=== PATIENT | male | born 2000 | race Caucasian/White ===

== ENCOUNTER 2023-05-14 06:21 | Emergency (ER) | payer OTHER, SELFPAY ==
[2023-05-14 06:29] VITALS: BP 144/94; PULSE 116; RESP 16; TEMP 36.6; O2SAT 98; BMI 23.9
--- NOTE | 2023-05-14 06:49 | ED.GENADULT ---
HPI - General Adult General Chief complaint: Allergic Reaction Stated complaint: allergic reaction Time Seen by Provider: 05/14/23 06:29 History of Present Illness HPI narrative: Patient c/o sudden onset throat swelling that began at 0530 today. No known allergen exposure. Patient states she has h/o anaphylaxis and is concerned she is having a reaction. Patient took 25mg benadryl prior to arrival. Patient denies SOB. Lungs clear to auscultation. Patient notes her epi-pen is 5 years old and did not take it. Was in on 05/10/23 for viral infection and given zofran odt rx. Prefers They/Them pronouns. 23-year-old male to female transgender young woman presenting to the emergency department with concern of potential allergic reaction. They report a history anaphylaxis. Was at a [employer] where there were some dog so after returning from that at about 130 in the morning took a dose of diphenhydramine. Went to bed, unclear of slept but reports waking feeling throat increasingly tight. Took another dose of diphenhydramine, waited 30 minutes and was not feeling better so presented to the emergency department. Allergic reaction is often associated with asthma like wheeze. Looks to have an underlying history of eczema as well. No other rashes noted. No nausea. Has been having abdominal cramping but this has been present in some form I believe since appendectomy. Related Data Home Medications Medication Instructions Recorded Confirmed albuterol sulfate 90 mcg/actuation 2 puff inhalation Q4H PRN 04/20/22 05/14/23 aerosol inhaler (Ventolin HFA) dextroamphetamine-amphetamine ER 25 mg PO DAILY 04/20/22 05/14/23 25 mg 24hr capsule,extend release (Adderall XR) venlafaxine 37.5 mg 37.5 mg PO DAILY 04/20/22 05/14/23 capsule,extended release 24 hr estradiol valerate 10 mg/mL 5 mg IM QWEEK 05/10/23 05/14/23 intramuscular oil Previous Rx's Medication Instructions Recorded ondansetron 4 mg disintegrating 4 mg PO Q6H PRN nausea and 05/10/23 tablet vomiting #14 tabs Allergies Allergy/AdvReac Type Severity Reaction Status Date / Time peanut Allergy Severe Anaphylaxis Verified 05/10/23 13:15 tree nut Allergy Severe Anaphylaxis Verified 05/14/23 06:29 cat dander Allergy Mild asthma Verified 05/14/23 06:29 exacerbation dog dander Allergy Mild asthma Verified 05/14/23 06:29 exacerbation Penicillins Allergy Mild Verified 05/10/23 13:15 Review of Systems Status of ROS: Reports: 6 or more systems reviewed and unremarkable except as noted in History and [facility] Smoking Status: Never smoker Do you use any of these nicotine containing products: None Second hand tobacco smoke exposure: No How often do you have a drink containing alcohol: never AUDIT-C Alcohol total score: 0 Non-prescribed substance use: denies use service: No Exam Narrative: Exam Narrative: Pleasant. NAD. Careful recall. Skin is warm and dry. Antecubital eczema small faint patch. Lungs on inhalation sound a titch stridorous particularly in the left lung field. Oropharynx with some cobblestoning but I do not appreciate any edema or swelling. Neck is supple without lymphadenopathy. Heart in elevated rate and regular rhythm. Const: Vital Signs, click to edit/add: Vital Signs - 24 hr 05/14/23 06:29 Temperature 97.9 F Pulse Rate [Left P ulse Oximeter] 116 H Respiratory Rate 16 Blood Pressure [Ri ght Upper Arm] 144/94 H Pulse Oximetry 98 Oxygen Delivery Me thod Room Air Documenting provider has reviewed patient's vital signs: yes Course Vital Signs Vital signs: Initial Vital Signs Respiratory Effort Normal, Spontaneous, Non-Labored 05/14/23 06:28 Respiratory Depth Normal 05/14/23 06:28 Respiratory Pattern Normal 05/14/23 06:28 Vital Signs Temperature 97.9 F 05/14/23 06:29 Pulse Rate 116 H 05/14/23 06:29 Respiratory Rate 16 05/14/23 06:29 Blood Pressure 144/94 H 05/14/23 06:29 Pulse Oximetry 98 05/14/23 06:29 Oxygen Delivery Method Room Air 05/14/23 06:29 Temperature 97.9 F 05/14/23 06:29 Pulse Rate 116 H 05/14/23 06:29 Respiratory Rate 16 05/14/23 06:29 Blood Pressure 144/94 H 05/14/23 06:29 Pulse Oximetry 98 05/14/23 06:29 Oxygen Delivery Method Room Air 05/14/23 06:29 Medications Administered Medications: Discontinued Medications Generic Name Dose Route Start Last Admin Trade Name Luis PRN Reason Stop Dose Admin Diphenhydramine HCl 25 mg 05/14/23 06:58 05/14/23 07:25 Diphenhydramine 50 Mg/Ml Inj IVP 05/14/23 06:59 25 mg ONCE ONE Administration Sodium Chloride 1,000 mls @ 1,000 mls/hr 05/14/23 06:58 05/14/23 07:25 0.9 % Sodium Chloride 1000 Ml IV 05/14/23 07:57 1,000 mls/hr .Q1H ONE Administration Methylprednisolone Sodium Succinate 80 mg 05/14/23 06:58 05/14/23 07:25 Methylprednisolone Sod Succ 40 Mg/Ml IVP 05/14/23 06:59 80 mg ONCE ONE Administration Methylprednisolone Sodium Succinate 80 mg 05/14/23 07:45 05/14/23 07:41 Methylprednisolone Sod Succ 62.5 Mg/Ml (125) IVP 05/14/23 07:46 Not Given ONCE ONE Medical Decision Making MDM Narrative Medical decision making narrative: Nursing had informed me that on triage throat looked a little swollen and as I was going to see Ale, that they would had reassessed throat to look more swollen. Ale does endorse that seems little worse over the time that she has been here. I do not appreciate any particular findings in the oropharynx other than as mentioned above. There is however trace stridorous inhalation on forced inhalation. I do not think needs epinephrine at this point. Will treat as evolving allergic reaction/anaphylaxis. IV will be placed with normal saline diphenhydramine and Solu-Medrol. On reassessment initially is not particularly improved. But not worse. Is given a warm blanket. On return and reassessment another 30 minutes later can now say that is improving with regard to throat but still ?feel like crap?. I would anticipate discharge about 2 hours after steroid to be continued on 3 days of prednisone. See patient discharge plan Discharge Plan Discharge Clinical Impression: Allergic reaction Patient Disposition: Home w/ Parent or Adult Condition: Improved Additional Instructions: Stay well-hydrated. If were to have known exposure to allergen with quick onset of difficulty breathing, EpiPen would be appropriate to use, and then present to the emergency department. Otherwise if have some recurrence can take diphenhydramine for breakthrough irritation. If not improved in an hour or quickly worsening would return to the emergency department. I would take 20 mg of prednisone twice daily over the next 3 days. These are prescribed from [facility]. Prescriptions: No Action venlafaxine 37.5 mg capsule,extended release 24hr 37.5 mg PO DAILY dextroamphetamine-amphetamine [Adderall XR] 25 mg capsule,extended release 24hr 25 mg PO DAILY albuterol sulfate [Ventolin HFA] 90 mcg/actuation HFA aerosol inhaler 2 puff inhalation Q4H PRN estradiol valerate 10 mg/mL oil 5 mg IM QWEEK ondansetron 4 mg tablet,disintegrating 4 mg PO Q6H PRN (Reason: nausea and vomiting) Qty: 14 0RF Follow Up/Referrals: Yg Barnett MD [Primary Care Provider] - Stand Alone Forms: [facility] Info Instructions
[2023-05-14 07:24] VITALS: BP 109/68; PULSE 87; RESP 16; O2SAT 94
[2023-05-14] MEDS: 0.9 % SODIUM CHLORIDE 1000 ml 1,000 ML IV (07:25)
[2023-05-14] MEDS: METHYLPREDNISOLONE SOD SUCC 40 MG/ML 80 MG IVP (07:25)
[2023-05-14] MEDS: diphenhydrAMINE 50 MG/ML inj 25 MG IVP (07:25)
--- NOTE | 2023-05-14 07:25 | PC.NURSE ---
while placing IV patient became pale and diaphoretic and passed out while in the bed, second nurse called to bedside patient HOB placed flat, patients feet raised, cool cloth applied to forehead. approx 1 minute and patient became conversive and color returned and less diaphoretic and states feeling better.
[2023-05-14 07:45] VITALS: BP 105/66; PULSE 77; RESP 16; O2SAT 96
[2023-05-14 08:00] VITALS: BP 160/63; PULSE 82; RESP 16; O2SAT 94
[2023-05-14 08:15] VITALS: BP 114/75; PULSE 85; RESP 16; O2SAT 97
[2023-05-14 08:30] VITALS: BP 104/63; PULSE 82; RESP 16; O2SAT 97
== END 2023-05-14 09:35 | disposition home or self-care (01) ==
PROVIDERS: Emergency Provider Family Medicine; PCP Family Medicine
DX: R22.1 Localized swelling, mass and lump, neck (principal); T78.49XA Other allergy, initial encounter
CPT/HCPCS: 96374; 96375; 96376; 99283; 99284; J1200; J2920; J7030